=== PATIENT | male | born 1940 | race Caucasian/White ===

== ENCOUNTER → 2017-11-07 | Outpatient (REF) | payer MEDICARE, OTHER ==
[2017-11-07 22:10] LABS: CHLAMYDIA DNA AMPLIFICATION NEGATIVE (NEGATIVE); GC DNA AMPLIFICATION NEGATIVE (NEGATIVE)
== END ==
LOC: M SFHCLERA 09:47
DX: R30.0 Dysuria (principal); N30.01 Acute cystitis with hematuria
CPT/HCPCS: 87186

== ENCOUNTER → 2018-02-26 | Outpatient (REF) | payer MEDICARE, OTHER ==
[2018-02-26 14:01] LABS: APPEARANCE, URINE CLEAR (CLEAR); BACTERIA, URINE AUTO NEGATIVE (NEGATIVE); BILIRUBIN, URINE AUTO NEGATIVE (NEGATIVE); BLOOD, URINE BLOOD NEGATIVE (NEGATIVE); COLOR, URINE YELLOW (YELLOW); GLUCOSE, URINE (UA) AUTO NEGATIVE (NEGATIVE); KETONE, URINE AUTO NEGATIVE (NEGATIVE); LEUKOCYTE ESTERASE, URINE AUTO NEGATIVE (NEGATIVE); MUCUS, URINE SMALL (NEGATIVE); NITRITE, URINE AUTO NEGATIVE (NEGATIVE); PROTEIN, URINE AUTO NEGATIVE (NEGATIVE); RBC, URINE AUTO 0 /HPF (0-3); SPECIFIC GRAVITY URINE AUTO 1.013 (1.002-1.035); SQUAMOUS EPITHELIAL CELL UR AU 0 /HPF (0-6); UROBILINOGEN, URINE AUTO 0.2 mg/dL (0.0-2.0); WBC, URINE AUTO 0 /HPF (0-3)
== END ==
LOC: M SMT 13:31
DX: R97.20 Elevated prostate specific antigen [PSA] (principal); Z79.899 Other long term (current) drug therapy
CPT/HCPCS: 81001

== ENCOUNTER → 2018-03-05 | Outpatient (CLI) | payer MEDICARE, OTHER | LOC: M SMT PRO 09:58 | DX: C61 Malignant neoplasm of prostate (principal) | CPT/HCPCS: G0416 ==

== ENCOUNTER → 2018-03-07 | Outpatient (CLI) | payer MEDICARE, OTHER ==
[2018-03-07 17:34] LABS: ANION GAP 9 MEQ/L (8-16); BLOOD UREA NITROGEN 22 MG/DL (7-18); CALCIUM LEVEL 9.3 MG/DL (8.8-10.2); CARBON DIOXIDE LEVEL 26 MEQ/L (21-32); CHLORIDE LEVEL 104 MEQ/L (98-107); CREATININE FOR GFR 1.85 MG/DL (0.70-1.30); GLUCOSE, FASTING 103 MG/DL (70-100); POTASSIUM SERUM 4.2 MEQ/L (3.5-5.1); SODIUM LEVEL 139 MEQ/L (136-145)
== END ==
LOC: M SMT 15:01
DX: C61 Malignant neoplasm of prostate (principal)
CPT/HCPCS: 80048

== ENCOUNTER → 2018-03-15 | Outpatient (CLI) | payer MEDICARE, OTHER | LOC: M RAD 08:30 | DX: C61 Malignant neoplasm of prostate (principal) | CPT/HCPCS: 78306 ==

== ENCOUNTER 2018-04-30 08:00 | Outpatient (CLI) | payer MEDICARE, OTHER | END 2018-05-02 | LOC: M ONCR 08:21 | DX: C61 Malignant neoplasm of prostate (principal) | CPT/HCPCS: A4648 ==

== ENCOUNTER → 2018-04-30 | Outpatient (CLI) | payer MEDICARE, OTHER | LOC: M SMT 08:00 | DX: C61 Malignant neoplasm of prostate (principal) | CPT/HCPCS: A4648 ==

== ENCOUNTER 2018-05-02 10:24 | Outpatient (RCR) | payer MEDICARE, OTHER ==
[2018-05-20 10:35] LABS: HEMATOCRIT 34.7 % (42.0-52.0); HEMOGLOBIN 11.8 g/dl (13.5-17.5); MEAN CORPUSCULAR HEMOGLOBIN 34.1 pg (27.0-33.0); MEAN CORPUSCULAR VOLUME 100.3 fl (80.0-96.0); PLATELET COUNT, AUTOMATED 177 10^3/uL (150-450); RED BLOOD COUNT 3.46 10^6/uL (4.30-6.10); RED CELL DISTRIBUTION WIDTH 12.4 % (11.5-14.5); WHITE BLOOD COUNT 7.6 10^3/uL (4.0-10.0)
== END 2018-05-24 ==
LOC: M ONCR 10:24
DX: C61 Malignant neoplasm of prostate (principal)
CPT/HCPCS: 77334

== ENCOUNTER 2018-05-31 11:57 | Outpatient (RCR) | payer MEDICARE, OTHER | END 2018-06-23 | LOC: M ONCR 11:57 | DX: C61 Malignant neoplasm of prostate (principal) | CPT/HCPCS: 77300 ==

== ENCOUNTER → 2018-07-24 | Outpatient (RCR) | payer MEDICARE, OTHER ==
--- NOTE | 2018-06-25 09:18 | RADONC ---
RADIATION ONCOLOGY PROGRESS NOTE: DATE: 06/24/2018 CHART NUMBER: [id number] Mr. Hinton was presently at a dose of 2700 cGy to his prostate and is tolerating treatments quite well at this point with no complaints related to his radiation therapy. He is having no urinary or bowel difficulties. No bone pain. REVIEW OF SYSTEMS: The patient's review of systems is noncontributory. He denies nausea, vomiting, fevers, chills, night sweats, diplopia, headaches, anxiety or depression, anorexia, weight loss, visual disturbances, chest pain, urinary or bowel difficulties, bone pain, or neurological problems. PHYSICAL EXAMINATION: The patient's skin is in good condition with no evidence of moist or dry desquamation. The remainder of his physical exam remains unchanged. Mr. Hinton is tolerating treatments quite well and radiation will continue as scheduled.
--- NOTE | 2018-07-03 08:26 | RADONC ---
RADIATION ONCOLOGY PROGRESS NOTE DATE: 07/01/2018 CHART NUMBER: [id number] Mr. Hinton is presently at a dose of 3600 cGy to his prostate and is tolerating treatments quite well at this point with no complaints related to his radiation therapy. He is having no urinary or bowel difficulties and no bone pain. The patient's review of systems is noncontributory. He denies nausea, vomiting, fevers, chills, night sweats, diplopia, headaches, anxiety or depression, anorexia, weight loss, visual disturbances, chest pain, urinary or bowel difficulties, bone pain, or neurological problems. PHYSICAL EXAMINATION: The patient's skin is in good condition with no evidence of moist or dry desquamation. The remainder of his physical exam remains unchanged. Mr. Hinton is tolerating treatments quite well and radiation will continue as scheduled.
--- NOTE | 2018-07-09 08:14 | RADONC ---
RADIATION ONCOLOGY PROGRESS NOTE: DATE: 07/08/2018 CHART NUMBER: [id number] PROGRESS NOTE: Mr. Hinton is presently at a dose of 4500 cGy to his prostate and is tolerating treatments quite well at this point with no complaints related to his radiation therapy. He is having no urinary or bowel difficulties and no bone pain. REVIEW OF SYSTEMS: The patient's review of systems is noncontributory. Denies nausea, vomiting, fevers, chills, night sweats, diplopia, headaches, anxiety or depression, anorexia, weight loss, visual disturbances, chest pain, urinary or bowel difficulties, bone pain, or neurological problems. PHYSICAL EXAMINATION: The patient's skin is in good condition with no evidence of radiation change present. There is no moist or dry desquamation. The remainder of his physical exam remains unchanged. Mr. Hinton is tolerating treatments quite well and radiation will continue as scheduled.
--- NOTE | 2018-07-23 09:43 | RADONC ---
RADIATION ONCOLOGY PROGRESS NOTE DATE: 07/22/2018 CHART NUMBER: [id number] PROGRESS NOTE: Mr. Hinton with a diagnosis of adenocarcinoma of the prostate is currently receiving local regional radiotherapy and is at a dose of 6300 cGy of an anticipated 7920 cGy. REVIEW OF SYSTEMS: He denies any nausea, vomiting, diarrhea, dysuria, hematuria or blood per rectum. His energy level is such that he is able to maintain day-to-day activities without any alteration of his lifestyle. Skin irritation is denied. EXAMINATION FINDINGS: No evidence of erythema and certainly no focal desquamation. The remainder of the physical examination is unchanged. IMPRESSION: Tolerating therapy well. PLAN: Treatments to continue.
== END ==
LOC: M ONCR 06-24 08:28
PROVIDERS: ATTEND Radiology Radiation Oncology
DX: C61 Malignant neoplasm of prostate (principal)

== ENCOUNTER 2018-07-25 08:30 | Outpatient (RCR) | payer MEDICARE, OTHER | END 2018-08-23 | LOC: M ONCR 07-29 08:26 | DX: C61 Malignant neoplasm of prostate (principal) | CPT/HCPCS: 77336 ==

== ENCOUNTER → 2018-09-04 | Outpatient (CLI) | payer MEDICARE, OTHER | LOC: M ONCR 08:47 | DX: C61 Malignant neoplasm of prostate (principal) | CPT/HCPCS: G0463 ==

== ENCOUNTER → 2019-02-12 | Outpatient (CLI) | payer MEDICARE, OTHER ==
--- NOTE | 2019-02-17 08:09 | RADONC ---
RADIATION ONCOLOGY FOLLOWUP NOTE DATE OF SERVICE: 02/12/2019 CHART NUMBER: [id number]. DIAGNOSIS: Prostate cancer. STAGE: Stage IIC, [id number], [place] score 8 (4-4), grade group 4, PSA 13.9. ECOG PERFORMANCE STATUS: Zero. FOLLOWUP NOTE: Mr. 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 The patient presents today reporting that he is doing quite well with no complaints at this time related to his radiation therapy or disease. He has no urinary or bowel difficulties and no bone pain. He does say his bowel movements are slightly loose. REVIEW OF SYSTEMS: The patient's review of systems is noncontributory. He denies nausea, vomiting, fevers, chills, night sweats, diplopia, headaches, anxiety or depression, anorexia, weight loss, visual disturbances, chest pain, urinary or bowel difficulties, bone pain, or neurological problems. PHYSICAL EXAMINATION: The patient is a well-developed, well-nourished male in no acute distress. HEENT exam is normocephalic, atraumatic. Extraocular movements are intact. There is no palpable cervical, supraclavicular, infraclavicular, axillary, or inguinal lymphadenopathy present. Lungs are clear to auscultation and percussion. Heart has a regular rate and rhythm. Abdomen is benign with no hepatosplenomegaly, masses, or tenderness. Rectal examination reveals a normal anal sphincter tone. His prostate is smooth with no evidence of nodularity. Skeletal examination reveals no tenderness to pressure or percussion of the bony skeleton. Extremities reveal no clubbing, cyanosis, or edema. Neurologic exam is grossly intact, as is the remainder of the physical examination. ASSESSMENT: The patient is clinically [place] at this time. Since he is being followed so closely by his urologist, Dr. Hernandez, I have discharged him from our followup except on a p.r.n. basis. cc: MD Jr Hernandez MD
== END ==
LOC: M ONCR 08:41
PROVIDERS: ATTEND Radiology Radiation Oncology
DX: Z87.438 Personal history of other diseases of male genital organs (principal); Z92.3 Personal history of irradiation
CPT/HCPCS: 36415; 84153; G0463

== ENCOUNTER → 2019-07-07 | Outpatient (CLI) | payer MEDICARE, OTHER | LOC: M LRY 09:17 | PROVIDERS: ATTEND Urology | DX: C61 Malignant neoplasm of prostate (principal) ==

== ENCOUNTER 2019-07-29 09:50 | Day surgery (SDC) | payer MEDICARE, OTHER ==
[~2019-07-29] VITALS: Ht 172.7 cm; Wt 77.6 kg
[~2019-07-29 09:50] MED LIST: CALC600T60 PO; CHOL100029 PO; CURAMED PO; FISH1000 PO; LIDOCAINE 1% MDV 20ML VIAL SQ PRN; LIPI10TA PO; LISI20TA20 PO; LR 1,000 ML IV ONE; LUPR45IN IM; [UNRECOGNIZED DRUG - CODE] PO; ceFAZolin SOD 1 GM in D5W MINI-BAG PLUS 50 ML IV ONE
[2019-07-29] MEDS ORDERED: PROPOFOL 200 MG/20 ML VIAL As Ordered ONE (11:36)
[2019-07-29] MEDS ORDERED: KETOROLAC 60 MG/2 ML VIAL (J1885) As Ordered ONE (11:36)
[2019-07-29] MEDS ORDERED: LIDOCAINE 2% INJ 100 MG/5 ML SDV (FOR ANES.) As Ordered ONE (11:36)
[2019-07-29] MEDS ORDERED: dexameTHASONE 4 MG/ML 1ML VIAL (J1100) As Ordered ONE (11:36)
[2019-07-29] MEDS ORDERED: ONDANSETRON 4MG/2ML VIAL (J2405) As Ordered ONE (11:36)
[2019-07-29] MEDS ORDERED: ROCURONIUM BROMIDE 50 MG/5 ML VIAL As Ordered ONE (11:36)
[2019-07-29] MEDS ORDERED: fentaNYL 250 MCG/5 ML INJECTION (J3010) As Ordered ONE (12:23)
[2019-07-29] MEDS ORDERED: MIDAZOLAM INJ 2 MG/2 ML VIAL (J2250) As Ordered ONE (12:24)
[2019-07-29] MEDS ORDERED: BUPIVACAINE HCL 0.25% 10 ML VIAL As Ordered ONE (12:31)
[2019-07-29] MEDS ORDERED: BUPIVACAINE LIPOSOME/PF 1.3% 20ML VIAL (13.3MG/ML)(EXPAREL)(C9290 PER1MG) As Ordered ONE (12:31)
[2019-07-29] MEDS ORDERED: SUGAMMADEX SODIUM 500 MG/5 ML VIAL (BRIDION) As Ordered ONE (13:26)
[2019-07-29] MEDS ORDERED: fentaNYL 100 MCG/2 ML INJECTION (J3010) IV PRN (14:00)
[2019-07-29] MEDS ORDERED: NORCO, ANEXSIA 5/325MG TABLET (HYDROcodone/ACETAMINOPHEN) PO PRN ×2 (14:00→15:00)
[2019-07-29] MEDS ORDERED: LR 1,000 ML IV SCH ×2 (14:00→15:00)
[2019-07-29] MEDS ORDERED: ONDANSETRON 4MG/2ML VIAL (J2405) IV PRN (14:00)
[2019-07-29 15:15] VITALS: BP 180/88
--- NOTE | 2019-07-29 22:12 | ECGEPIP ---
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
== END 2019-07-29 15:20 | disposition home or self-care (01) ==
LOC: M SDC 09:50
PROVIDERS: ATTEND Surgery
DX: K42.9 Umbilical hernia without obstruction or gangrene (principal); I10 Essential (primary) hypertension; E78.5 Hyperlipidemia, unspecified; D64.9 Anemia, unspecified; Z87.891 Personal history of nicotine dependence; Z79.899 Other long term (current) drug therapy; Z85.46 Personal history of malignant neoplasm of prostate; Z92.21 Personal history of antineoplastic chemotherapy; Z92.3 Personal history of irradiation
CPT/HCPCS: 49585; 88302; 93005; C1781; C9290; J0690; J1100; J1885; J2250; J2405; J3010

== ENCOUNTER → 2019-10-07 | Outpatient (REF) | payer MEDICARE, OTHER ==
[~2019-10-07] MED LIST changes: -LIDOCAINE 1% MDV 20ML VIAL SQ PRN; -LR 1,000 ML IV ONE; -ceFAZolin SOD 1 GM in D5W MINI-BAG PLUS 50 ML IV ONE
== END ==
LOC: M SFHCLERA 08:00
PROVIDERS: ATTEND Urology
DX: C61 Malignant neoplasm of prostate (principal)

== ENCOUNTER → 2020-04-08 | Outpatient (REF) | payer MEDICARE, OTHER | LOC: M SFHCLERA 09:05 | PROVIDERS: ATTEND Urology | DX: C61 Malignant neoplasm of prostate (principal) ==

== ENCOUNTER → 2020-10-14 | Outpatient (CLI) | payer MEDICARE, OTHER | LOC: M WUC 08:11 | PROVIDERS: ATTEND Urology | DX: C61 Malignant neoplasm of prostate (principal) ==

== ENCOUNTER → 2020-10-21 | Outpatient (REF) | payer MEDICARE, OTHER ==
[2020-10-21 13:48] LABS: APPEARANCE, URINE CLOUDY (CLEAR); BACTERIA, URINE AUTO NEGATIVE (NEGATIVE); BILIRUBIN, URINE AUTO NEGATIVE (NEGATIVE); BLOOD, URINE BLOOD 3+ (NEGATIVE); COLOR, URINE YELLOW (YELLOW); GLUCOSE, URINE (UA) AUTO NEGATIVE (NEGATIVE); KETONE, URINE AUTO NEGATIVE (NEGATIVE); LEUKOCYTE ESTERASE, URINE AUTO 3+ (NEGATIVE); NITRITE, URINE AUTO NEGATIVE (NEGATIVE); PROTEIN, URINE AUTO 2+ mg/dL (NEGATIVE); RBC, URINE AUTO TNTC /HPF (0-3); SQUAMOUS EPITHELIAL CELL UR AU 0 /HPF (0-6); UROBILINOGEN, URINE AUTO 0.2 mg/dL (0.0-2.0); WBC, URINE AUTO TNTC /HPF (0-3)
== END ==
LOC: M SMT 13:21
PROVIDERS: ATTEND Urology
DX: N39.0 Urinary tract infection, site not specified (principal)

== ENCOUNTER → 2021-03-09 | Outpatient (REF) | payer MEDICARE, OTHER ==
[2021-03-09 18:01] LABS: TOTAL PROTEIN 7.4 GM/DL (6.4-8.2)
[2021-03-09 18:10] LABS: HEPATITIS B SURFACE ANTIBODY NEGATIVE (POSITIVE)
[2021-03-09 18:21] LABS: HEPATITIS B SURFACE ANTIGEN NEGATIVE (NEGATIVE)
[2021-03-09 18:48] LABS: HEPATITIS C VIRUS ABY INDEX < 0.0 INDEX (<0.8)
[2021-03-09 18:49] LABS: HEPATITIS B CORE ANTIBODY IGM NEGATIVE (NEGATIVE)
[2021-03-15 17:12] LABS: ANCA-ATYPICAL <1:20 titer (Neg:<1:20); ANTI DS-DNA AB Negative (Negative); ANTINUCLEAR ANTIBODIES DIRECT Negative (Negative); CYTOPLASMIC NEUTROP AB ANCA-C <1:20 titer (Neg:<1:20); FREE KAPPA LIGHT CHAINS SERUM 41.7 mg/L (3.3-19.4); FREE LAMBDA LIGHT CHAINS SERUM 25.5 mg/L (5.7-26.3); KAPPA/LAMBDA RATIO SERUM 1.64 (0.26-1.65); Methylmalonic Acid 142 nmol/L (0-378); PERINUCLEAR AB ANCA-P <1:20 titer (Neg:<1:20); SJOGREN'S ANTI SS-A <0.2 AI (0.0-0.9); SJOGREN'S ANTI SS-B <0.2 AI (0.0-0.9)
== END ==
LOC: M LAB REF 16:48
PROVIDERS: ATTEND Internal Medicine Nephrology
DX: R80.9 Proteinuria, unspecified (principal)

== ENCOUNTER → 2021-04-06 | Outpatient (CLI) | payer MEDICARE, OTHER ==
[~2021-04-06] MED LIST changes: +MAGN400T3 PO
== END ==
LOC: M LABSMTC 10:10
PROVIDERS: ATTEND Anesthesiology
DX: Z01.812 Encounter for preprocedural laboratory examination (principal)

== ENCOUNTER 2021-04-11 08:50 | Day surgery (SDC) | payer MEDICARE, OTHER ==
[~2021-04-11] VITALS: Ht 172.7 cm; Wt 74.4 kg
[~2021-04-11 08:50] MED LIST changes: +NS 1,000 ML IV ONE
[2021-04-11] MEDS ORDERED: LIDOCAINE 2% 100MG/5ML SDV (FOR ANES.) As Ordered ONE (10:28)
[2021-04-11] MEDS ORDERED: propofoL 200 MG/20 ML VIAL As Ordered ONE (10:28)
--- NOTE | 2021-04-11 11:02 | ROOR ---
Patient Name: Alexander Hinton Procedure Date: 04/11/2021 10:37 AM Date of : 1940 Age: 81 Room: [facility] Gender: Male Note Status: Finalized Procedure: Total Colonoscopy to Cecum + ileoscopy + Apc Indications: Rectal bleeding, Unexplained iron deficiency anemia Providers: Nick Adame MD Referring MD: Jr Martinez MD Requesting Provider: Medicines: Monitored Anesthesia Care Complications: No immediate complications. Procedure: Pre-Anesthesia Assessment: - The heart rate, respiratory rate, oxygen saturations, blood pressure, adequacy of pulmonary ventilation, and response to care were monitored throughout the procedure. The Colonoscope was introduced through the anus and advanced to the terminal ileum, with identification of the appendiceal orifice and IC valve. The colonoscopy was performed without difficulty. The patient tolerated the procedure well. The quality of the bowel preparation was excellent. Findings: The perianal and digital rectal examinations were normal. The mucosa vascular pattern in the rectum was locally increased. Coagulation for hemostasis using argon plasma at 0.8 liters/minute and 30 tim was successful. Multiple small and large-mouthed diverticula were found in the recto-sigmoid colon, sigmoid colon and descending colon. The terminal ileum appeared normal. The exam was otherwise without abnormality on direct and retroflexion views. Impression: - Increased mucosa vascular pattern in the rectum. Treated with argon plasma coagulation (APC). - Diverticulosis in the recto-sigmoid colon, in the sigmoid colon and in the descending colon. - The examined portion of the ileum was normal. - The examination was otherwise normal on direct and retroflexion views. - No specimens collected. - The exam was otherwise normal to the cecum. Recommendation: - Patient has a contact number available for emergencies. The signs and symptoms of potential delayed complications were discussed with the patient. Return to normal activities tomorrow. Written discharge instructions were provided to the patient. - High fiber diet. - Discharge patient to home. - Continue present medications. - Repeat colonoscopy PRN for retreatment. - Return to referring physician. - The findings and recommendations were discussed with the patient's family. Procedure Code(s): --- Professional --- 52890, Colonoscopy, flexible; with control of bleeding, any method Diagnosis Code(s): --- Professional --- K62.5, Hemorrhage of anus and rectum D50.9, Iron deficiency anemia, unspecified K57.30, Diverticulosis of large intestine without perforation or abscess without bleeding CPT copyright 2019 [employer]. All rights reserved. The codes documented in this report are preliminary and upon remote medical coder review may be revised to meet current compliance requirements. Nick Adame MD Nick Adame MD 04/11/2021 11:02:09 AM Electronically signed by Nick Adame MD Number of Addenda: 0 Note Initiated On: 04/11/2021 10:37 AM Estimated Blood Loss: Estimated blood loss: none.
[2021-04-11 11:59] VITALS: BP 170/80
== END 2021-04-11 11:50 | disposition home or self-care (01) ==
LOC: M OPP 08:50
PROVIDERS: ATTEND Internal Medicine Gastroenterology
DX: K57.30 Diverticulosis of large intestine without perforation or abscess without bleeding (principal); K62.5 Hemorrhage of anus and rectum; D64.9 Anemia, unspecified; Z79.899 Other long term (current) drug therapy; Z85.46 Personal history of malignant neoplasm of prostate; Z92.3 Personal history of irradiation

== ENCOUNTER → 2021-04-12 | Outpatient (CLI) | payer MEDICARE, OTHER ==
[~2021-04-12] MED LIST changes: -NS 1,000 ML IV ONE
== END ==
LOC: M WUC 10:32
PROVIDERS: ATTEND Urology
DX: C61 Malignant neoplasm of prostate (principal)

== ENCOUNTER → 2021-04-13 | Outpatient (CLI) | payer MEDICARE, OTHER ==
--- NOTE | 2021-04-13 11:33 | REP ---
INDICATION: CKD. COMPARISON: None. TECHNIQUE: Real-time sonographic evaluation of the kidneys and urinary bladder is performed. FINDINGS: Renal cortical echogenicity pattern is normal bilaterally and contours are smooth. There is no hydronephrosis bilaterally. There is a simple cyst laterally of the left kidney 1.4 x 1.2 x 1.0 cm. The right kidney measures 11.2 x 4.2 x 5.5 cm. Left renal dimensions are 10.4 x 5.0 x 5.0 cm. Urinary bladder is not optimally distended. It measures 6.1 x 5.4 x 4.9 cm for total volume of 83 cc. There is no postvoid residual after voiding. No bladder mass or calculus is seen. Ureteral jets are visualized in the urinary bladder with Doppler color evaluation. IMPRESSION: No hydronephrosis. Small left renal cyst. Urinary bladder is not well distended, and demonstrates no gross abnormality. <Electronically signed by Meir Velez > 04/13/21 [id number]
== END ==
LOC: M RAD 10:39
PROVIDERS: ATTEND Internal Medicine Nephrology
DX: N18.9 Chronic kidney disease, unspecified (principal)

== ENCOUNTER → 2021-05-09 | Outpatient (REF) | payer MEDICARE, OTHER ==
[~2021-05-09] MED LIST changes: +IRON27TA2 PO
[2021-05-09 19:30] LABS: MAGNESIUM LEVEL 1.5 MG/DL (1.8-2.4); PERCENT SATURATION 28.3 % (19.7-50.0)
[2021-05-09 19:39] LABS: FOLATE 9.4 NG/ML
== END ==
LOC: M LAB REF 18:23
PROVIDERS: ATTEND Internal Medicine Nephrology
DX: D64.9 Anemia, unspecified (principal); E83.42 Hypomagnesemia

== ENCOUNTER → 2021-06-09 | Outpatient (REF) | payer MEDICARE, OTHER | LOC: M LAB REF 18:27 | PROVIDERS: ATTEND Internal Medicine Nephrology | DX: N18.31 Chronic kidney disease, stage 3a (principal) ==

== ENCOUNTER → 2021-09-27 | Outpatient (CLI) | payer MEDICARE, OTHER ==
[~2021-09-27] MED LIST changes: -MAGN400T3 PO; +MAGN400T33 PO
[2021-09-27 12:47] LABS: BASO % 0.4 % (0.0-1.0); EOS # 0.1 10^3/uL (0.0-0.5); HEMATOCRIT 34.5 % (42.0-52.0); HEMOGLOBIN 11.1 g/dl (13.5-17.5); LYMPH # 2.2 10^3/uL (1.5-5.0); LYMPH % 32.3 % (24.0-44.0); MEAN CORPUSCULAR HEMOGLOBIN 32.5 pg (27.0-33.0); MEAN CORPUSCULAR HGB CONC 32.2 g/dl (32.0-36.5); MEAN CORPUSCULAR VOLUME 100.9 fl (80.0-96.0); MONO # 0.5 10^3/uL (0.0-0.8); MONO % 7.8 % (2.0-8.0); NEUTROPHILS % 58.2 % (36.0-66.0); PLATELET COUNT, AUTOMATED 215 10^3/uL (150-450); RED BLOOD COUNT 3.42 10^6/uL (4.30-6.10); WHITE BLOOD COUNT 6.8 10^3/uL (4.0-10.0)
[2021-09-27 13:20] LABS: ALBUMIN 3.7 GM/DL (3.2-5.2); BILIRUBIN,TOTAL 0.4 MG/DL (0.2-1.0); CALCIUM LEVEL 9.5 MG/DL (8.8-10.2); CREATININE FOR GFR 1.63 MG/DL (0.70-1.30); GLOMERULAR FILTRATION RATE 43.6 (>35); POTASSIUM SERUM 4.8 MEQ/L (3.5-5.1); TOTAL PROTEIN 7.4 GM/DL (6.4-8.2)
[2021-09-28 18:17] LABS: FREE KAPPA LIGHT CHAINS SERUM 49.5 mg/L (3.3-19.4); FREE LAMBDA LIGHT CHAINS SERUM 27.4 mg/L (5.7-26.3); KAPPA/LAMBDA RATIO SERUM 1.81 (0.26-1.65)
== END ==
LOC: M WUC 09:18
PROVIDERS: ATTEND Specialist
DX: Z00.00 Encounter for general adult medical examination without abnormal findings (principal)

== ENCOUNTER → 2021-10-24 | Outpatient (REF) | payer MEDICARE, OTHER ==
[~2021-10-24] MED LIST changes: -LISI20TA20 PO; +LISI20TA37 PO; +VITAD400CA PO
== END ==
LOC: M LAB REF 12:44
PROVIDERS: ATTEND Nurse Practitioner Family
DX: N18.31 Chronic kidney disease, stage 3a (principal)

== ENCOUNTER → 2022-04-13 | Outpatient (CLI) | payer MEDICARE, OTHER | LOC: M WUC 08:17 | PROVIDERS: ATTEND Urology | DX: C61 Malignant neoplasm of prostate (principal) ==

== ENCOUNTER → 2022-04-28 | Outpatient (REF) | payer MEDICARE, OTHER ==
[2022-04-28 12:10] LABS: ALBUMIN 3.6 GM/DL (3.2-5.2); BILIRUBIN,TOTAL 0.6 MG/DL (0.2-1.0); CALCIUM LEVEL 9.1 MG/DL (8.8-10.2); CHOLESTEROL RISK RATIO 1.945 (<5); CREATININE FOR GFR 1.54 MG/DL (0.70-1.30); FOLATE 13.7 NG/ML; GLOMERULAR FILTRATION RATE 46.4 (>35); POTASSIUM SERUM 4.4 MEQ/L (3.5-5.1); TOTAL PROTEIN 7.1 GM/DL (6.4-8.2)
== END ==
LOC: M LAB REF 10:32
PROVIDERS: ATTEND Family Medicine
DX: E53.8 Deficiency of other specified B group vitamins (principal); E78.5 Hyperlipidemia, unspecified

== ENCOUNTER → 2022-10-18 | Outpatient (CLI) | payer MEDICARE, OTHER ==
[~2022-10-18] MED LIST changes: +FISH100015 PO
== END ==
LOC: M WUC 08:06
PROVIDERS: ATTEND Urology
DX: C61 Malignant neoplasm of prostate (principal)

== ENCOUNTER → 2023-04-27 | Outpatient (REF) | payer MEDICARE, OTHER ==
[2023-04-27 09:54] LABS: CHOLESTEROL RISK RATIO 1.96 (<5); HDL CHOLESTEROL 76.9 MG/DL (>40); LDL CHOLESTEROL 59.9 MG/DL (<100); NON-HDL-C 74.1 MG/DL
== END ==
LOC: M LAB REF 08:54
PROVIDERS: ATTEND Family Medicine
DX: I10 Essential (primary) hypertension (principal); E53.8 Deficiency of other specified B group vitamins

== ENCOUNTER → 2023-10-23 | Outpatient (CLI) | payer MEDICARE, OTHER | LOC: M WUC 08:07 | PROVIDERS: ATTEND Urology | DX: C61 Malignant neoplasm of prostate (principal) ==

== ENCOUNTER → 2024-04-15 | Outpatient (CLI) | payer MEDICARE, OTHER | LOC: M WUC 08:08 | PROVIDERS: ATTEND Urology | DX: C61 Malignant neoplasm of prostate (principal) ==

== ENCOUNTER → 2024-10-06 | Outpatient (CLI) | payer MEDICARE, OTHER ==
[2024-10-06 18:05] LABS: BASO % 0.1 % (0.0-1.0); EOS % 0.1 % (0.0-3.0); HEMATOCRIT 33.1 % (42.0-52.0); HEMOGLOBIN 11.1 g/dl (13.5-17.5); LYMPH # 0.9 10^3/uL (1.5-5.0); LYMPH % 6.7 % (24.0-44.0); MEAN CORPUSCULAR HGB CONC 33.5 g/dl (32.0-36.5); MEAN CORPUSCULAR VOLUME 101.5 fl (80.0-96.0); MONO # 0.5 10^3/uL (0.0-0.8); NEUTROPHILS % 88.7 % (36.0-66.0); PLATELET COUNT, AUTOMATED 219 10^3/uL (150-450); RED BLOOD COUNT 3.26 10^6/uL (4.30-6.10); WHITE BLOOD COUNT 13.5 10^3/uL (4.0-10.0)
[2024-10-06 18:14] LABS: ERYTHROCYTE SEDIMENTATION RATE 38 mm/hr (0-20)
[2024-10-06 18:33] LABS: URIC ACID 8.2 MG/DL (3.7-9.2)
[2024-10-06 18:35] LABS: C REACTIVE PROTEIN QUANTITATIV 5.6 MG/DL (<1.0)
[2024-10-06 18:36] LABS: RHEUMATOID FACTOR QUANT 7.8 IU/ML (<14)
[2024-10-06 18:37] LABS: ALBUMIN 3.5 G/DL (3.2-5.2); BILIRUBIN,TOTAL 0.9 MG/DL (0.3-1.2); CALCIUM LEVEL 9.6 MG/DL (8.3-10.6); CREATININE FOR GFR 1.56 MG/DL (0.70-1.30); GLOMERULAR FILTRATION RATE 45.5 (>35); POTASSIUM SERUM 4.5 MMOL/L (3.5-5.1); TOTAL PROTEIN 7.4 G/DL (5.7-8.2)
[2024-10-10 08:47] LABS: IgG P18 AB NON-REACTIVE; IgG P23 AB NON-REACTIVE; IgG P28 AB NON-REACTIVE; IgG P30 AB NON-REACTIVE; IgG P39 AB NON-REACTIVE; IgG P41 AB REACTIVE; IgG P45 AB NON-REACTIVE; IgG P58 AB NON-REACTIVE; IgG P66 AB NON-REACTIVE; IgG P93 AB REACTIVE; IgM P23 AB NON-REACTIVE; IgM P39 AB NON-REACTIVE; IgM P41 AB NON-REACTIVE; LYME IgG WB INTERPRETATION NEGATIVE (NEGATIVE); LYME IgM WB INTERPRETATION NEGATIVE (NEGATIVE)
== END ==
LOC: M WUC 10:59
PROVIDERS: ATTEND Registered Nurse
DX: M19.072 Primary osteoarthritis, left ankle and foot (principal)

== ENCOUNTER → 2024-10-21 | Outpatient (REF) | payer MEDICARE, OTHER | LOC: M LABWUC 09:15 | PROVIDERS: ATTEND Urology | DX: C61 Malignant neoplasm of prostate (principal) ==

== ENCOUNTER → 2024-11-04 | Outpatient (CLI) | payer MEDICARE, OTHER | LOC: M WUC 11:32 | PROVIDERS: ATTEND Family Medicine | DX: R05.9 Cough, unspecified (principal) ==

== ENCOUNTER → 2024-12-01 | Outpatient (REF) | payer MEDICARE, OTHER ==
[2024-12-01 12:55] LABS: URINE TOTAL PROTEIN 18.2 MG/DL (0-14)
== END ==
LOC: M LAB REF 10:57
PROVIDERS: ATTEND Specialist
DX: D47.2 Monoclonal gammopathy (principal)

== ENCOUNTER → 2025-01-12 | Outpatient (CLI) | payer MEDICARE, OTHER | LOC: M PLAIMG 07:26 | PROVIDERS: ATTEND Family Medicine | DX: I49.3 Ventricular premature depolarization (principal) ==

== ENCOUNTER → 2025-04-14 | Outpatient (CLI) | payer MEDICARE, OTHER ==
[~2025-04-14] MED LIST changes: -FISH100015 PO; +FISH100019 PO
== END ==
LOC: M WUC 08:02
PROVIDERS: ATTEND Urology
DX: C61 Malignant neoplasm of prostate (principal)

== ENCOUNTER → 2025-08-19 | Outpatient (REF) | payer MEDICARE, OTHER | LOC: M LAB REF 17:04 | PROVIDERS: ATTEND Otolaryngology | DX: C44.622 Squamous cell carcinoma of skin of right upper limb, including shoulder (principal) ==